=== PATIENT | male | born 1950 | race Caucasian/White ===

== ENCOUNTER → 2017-04-05 | Outpatient (CLI) | payer MEDICARE ==
[~2017-04-05] MED LIST: ALBU25IPRN INH; ALBU8I INH; AZIT250T74 PO; DUONI INH; GLUCTAB PO; PRED10 PO; RANI150 PO; RIVA20 PO; Z.0.OXYGENDME NC
[2017-04-05 09:15] LABS: BLOOD GAS BASE EXCESS -1.1 mmol/L (-2-2); BLOOD GAS CARBOXYHEMOGLOBIN 2.3 % (0-4); BLOOD GAS HCO3 23 mmol/L (22-26); BLOOD GAS METHEMOGLOBIN 1.1 % (0-2); BLOOD GAS O2 HGB SATURATION 91 % (90-100); BLOOD GAS OXYGEN CONTENT 16.1 Vol % (12.0-20.0); BLOOD GAS PCO2 37 mmHg (38-42); BLOOD GAS PO2 70 mmHg (61-120); BLOOD GAS TOTAL HGB 12.5 G/DL (12.0-16.0); CRITICAL VALUE NO; DRAW SITE RT RADIAL; FIO2 21 %; NUMBER OF ARTERIAL PUNCTURES 1; STAT NO; TEMP CORR TO 98.6; ULNAR PULSE PRESENT
--- NOTE | 2017-04-06 10:15 | RSPPFT ---
DATE OF PROCEDURE: 04/05/17 COMMENTS: Spirometry shows FVC of 3.2 at 73% of predicted, FEV1 of 1.2 at 35%, FEV1/FVC ratio is decreased. Flow is decreased at FEF 25, FEF 50, FEF 75 and FEF 25-75. There is no response after bronchodilator treatment. Lung volumes show residual volume is increased. TLC is increased. Diffusion capacity is severely decreased. Flow volume loops indicate an obstructive pattern. Room air arterial blood gases show pH of 7.41, PCO2 of 37, PO2 of 70, BiCarb of 23 and Saturation at 91%. IMPRESSION: 1. Severe obstructive lung disease. 2. No response after bronchodilator treatment. 3. Lung volumes show hyperinflation and air trapping. 4. Severe loss in diffusion capacity. 5. Blood gases show mild hypoxia on room air.
== END ==
LOC: HRSP 08:56
PROVIDERS: ATTEND Specialist
DX: J44.9 Chronic obstructive pulmonary disease, unspecified (principal)
CPT/HCPCS: 36600; 82805; 94060; 94726; 94729